=== PATIENT | female | born 1955 ===

== ENCOUNTER 2023-11-04 06:33 | Day surgery (SDC) | payer OTHER ==
[2023-10-28 10:46] LABS: INR 0.97; PARTIAL THROMBOPLASTIN TIME 28.5 SECONDS (22.0-34.0); PROTHROMBIN TIME 10.2 SECONDS (9.0-11.5)
[~2023-11-04] VITALS: Ht 160 cm; Wt 63.5 kg
[~2023-11-04 06:33] MED LIST: ALENDRONATE SOD70 MG PO; CALCIUM500 M2 PO; CHILDREN'S ASPI81 MG PO; LIPITOR20 MG PO; MAXIMUM D3325 MCG PO; METFORMIN HCL500 M3 PO; VERELAN PM200 MG PO; ZESTRIL20 MG PO
[2023-11-04] MEDS ORDERED: CEFTRIAXONE SODIUM 2,000 MG VIAL ONE (13:01)
[2023-11-04] MEDS ORDERED: METRONIDAZOLE/SODIUM CHLORIDE 500 MG/100 ML PIGGYBACK IV ONE (13:01)
[2023-11-04] MEDS ORDERED: HEMOSTATIC MATRIX 1 KIT KIT TOP ONE (13:07)
[2023-11-04] MEDS ORDERED: BUPIVACAINE HCL/PF 0.5% 30ML ML ONE (13:07)
[2023-11-04] MEDS ORDERED: POVIDONE-IODINE 118 ML BOTT TOP ONE (13:07)
[2023-11-04] MEDS ORDERED: LIDOCAINE HCL 1%/Epi 20ML VIAL IJ ONE (13:07)
[2023-11-04] MEDS ORDERED: DIBUCAINE 30 GM TUBE ONE (13:07)
[2023-11-04] MEDS ORDERED: METRONIDAZOLE/SODIUM CHLORIDE 500 MG/100 ML PIGGYBACK IV SCH (13:45)
[2023-11-04] MEDS ORDERED: POVIDONE-IODINE 118 ML BOTT TOP SCH (13:45)
[2023-11-04] MEDS ORDERED: CEFTRIAXONE SODIUM 2,000 MG VIAL IV SCH (13:45)
[2023-11-04] MEDS ORDERED: LIDOCAINE HCL/EPINEPHRINE 10 ML VIAL IJ SCH (13:45)
[2023-11-04] MEDS ORDERED: BUPIVACAINE HCL/PF 0.5% 30ML ML IJ SCH (13:45)
[2023-11-04] MEDS ORDERED: HEMOSTATIC MATRIX 1 KIT KIT TOP SCH (13:45)
[2023-11-04] MEDS ORDERED: DIBUCAINE 30 GM TUBE RECTAL SCH (13:45)
== END 2023-11-04 17:25 | disposition home or self-care (01) ==
LOC: CIR.AMB 06:33
PROVIDERS: ATTEND Colon & Rectal Surgery
DX: K62.89 Other specified diseases of anus and rectum (principal); D12.9 Benign neoplasm of anus and anal canal; E11.9 Type 2 diabetes mellitus without complications; I10 Essential (primary) hypertension; E78.5 Hyperlipidemia, unspecified; Z20.822 Contact with and (suspected) exposure to COVID-19